=== PATIENT | female | born 1975 | race Caucasian/White ===

== ENCOUNTER → 2019-09-26 10:12 | Outpatient (CLI) | payer OTHER, SELFPAY ==
--- NOTE | 2019-09-26 | DI.RAD.S_ITS ---
PROCEDURE: XR HAND RT MIN 3V INDICATIONS: chronic wrist pain, hand pain TECHNIQUE: 3 views of the hand(s) acquired. COMPARISON: [facility], CR, XR WRIST RT MIN 3V, 09/26/2019, 10:30. FINDINGS: Bones: No acute fractures or dislocations. Old ulnar styloid fracture which appears corticated. Carpal bones are normally aligned. No suspicious bony lesions. Soft tissues: No suspicious soft tissue calcifications. IMPRESSION: 1. Old ulnar styloid fracture. Dictated by: Chastity Cervantes M.D. on 09/26/2019 at 17:34 Approved by: Chastity Cervantes M.D. on 09/26/2019 at 17:36
--- NOTE | 2019-09-26 | DI.RAD.S_ITS ---
PROCEDURE: XR HAND LT MIN 3V INDICATIONS: chronic wrist pain, hand pain TECHNIQUE: 3 views of the hand(s) acquired. COMPARISON: [facility], CR, XR WRIST LT MIN 3V, 09/26/2019, 10:34. FINDINGS: Bones: No fractures or dislocations. Carpal bones are normally aligned. No suspicious bony lesions. Soft tissues: There is soft tissue calcification in the area of triangular fibrocartilage consistent with TFCC degeneration. IMPRESSION: 1. No acute osseous medically. 2. TFCC degeneration. Dictated by: Chastity Cervantes M.D. on 09/26/2019 at 17:40 Approved by: Chastity Cervantes M.D. on 09/26/2019 at 17:42
--- NOTE | 2019-09-26 | DI.RAD.S_ITS ---
PROCEDURE: XR WRIST RT MIN 3V INDICATIONS: chronic wrist pain, hand pain TECHNIQUE: 4 views of the wrist were acquired. COMPARISON: [facility], CR, XR HAND RT MIN 3V, 09/26/2019, 10:30. FINDINGS: Bones: No acute fractures or dislocations. No suspicious bony lesions. There is an old ulnar styloid fracture. Scaphoid view: Scaphoid is intact Soft tissues: No suspicious soft tissue calcifications. IMPRESSION: Old ulnar styloid fracture. Dictated by: Chastity Cervantes M.D. on 09/26/2019 at 17:36 Approved by: Chastity Cervantes M.D. on 09/26/2019 at 17:37
--- NOTE | 2019-09-26 | DI.RAD.S_ITS ---
PROCEDURE: XR WRIST LT MIN 3V INDICATIONS: chronic wrist pain, hand pain TECHNIQUE: 4 views of the wrist were acquired. COMPARISON: [facility], CR, XR HAND LT MIN 3V, 09/26/2019, 10:34. FINDINGS: Bones: No fractures or dislocations. No suspicious bony lesions. Scaphoid view: Scaphoid is intact Soft tissues: There is soft tissue calcification in the area of the triangular fibrocartilage. 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 Dictated by: Chastity Cervantes M.D. on 09/26/2019 at 17:39 Approved by: Chastity Cervantes M.D. on 09/26/2019 at 17:40
== END ==
PROVIDERS: Visit Provider Nurse Practitioner Family
DX: M25.531 Pain in right wrist (principal); M79.641 Pain in right hand; M79.642 Pain in left hand; M25.532 Pain in left wrist; M19.032 Primary osteoarthritis, left wrist
CPT/HCPCS: 73110; 73130

== ENCOUNTER → 2020-04-17 12:02 | Outpatient (CLI) | payer OTHER, SELFPAY ==
--- NOTE | 2020-04-17 12:05 | DI.RAD.S_ITS ---
PROCEDURE: XR KNEE LT 3V INDICATIONS: RIGHT KNEE PAIN TECHNIQUE: 3 views of the knee were acquired. COMPARISON: None. FINDINGS: Bones: No fractures or dislocations. No suspicious bony lesions. Medial compartment chondrocalcinosis. Scattered degenerative subchondral sclerosis and spurring. Soft tissues: No joint effusion. No suspicious soft tissue calcifications. IMPRESSION: Chondrocalcinosis. Mild joint degeneration. Dictated by: Aaron Christianson M.D. on 04/17/2020 at 14:55 Approved by: Aaron Christianson M.D. on 04/17/2020 at 14:56
== END ==
PROVIDERS: Referring Provider Internal Medicine; Visit Provider Internal Medicine
DX: M25.561 Pain in right knee (principal); M17.11 Unilateral primary osteoarthritis, right knee; M11.261 Other chondrocalcinosis, right knee
CPT/HCPCS: 73562

== ENCOUNTER → 2024-04-01 11:16 | Outpatient (CLI) | payer OTHER, SELFPAY ==
--- NOTE | 2024-04-01 | DI.RAD.S_ITS ---
PROCEDURE: XR FINGER LT MIN 2V INDICATIONS: pain of left middle finger TECHNIQUE: AP hand, 2 views of the 3rd finger(s) acquired. COMPARISON: None. FINDINGS: Bones: Mildly displaced fracture of the 3rd distal phalanx tuft. No suspicious bony lesions. Soft tissues: No suspicious soft tissue calcifications. IMPRESSION: Mildly displaced fracture of the 3rd distal phalanx tuft. Dictated by: Jhonatan Auguste M.D. on 04/01/2024 at 12:49 Approved by: Jhonatan Auguste M.D. on 04/01/2024 at 12:51
== END ==
PROVIDERS: PCP Registered Nurse; Referring Provider Registered Nurse; Visit Provider Registered Nurse
DX: S62.633A Displaced fracture of distal phalanx of left middle finger, initial encounter for closed fracture (principal); M79.645 Pain in left finger(s); X58.XXXA Exposure to other specified factors, initial encounter
CPT/HCPCS: 73140

== ENCOUNTER → 2024-04-04 11:41 | Outpatient (CLI) | payer OTHER, SELFPAY ==
--- NOTE | 2024-04-04 11:42 | DI.MG.S_ITS ---
BILATERAL DIGITAL SCREENING MAMMOGRAM 3D/2D WITH CAD: 04/04/2024 CLINICAL: Routine screening. Comparison is made to exam dated: 12/21/2017 mammogram - outside facility. There are scattered areas of fibroglandular density in both breasts (category b / 25%-50% glandular tissue). Current study was also evaluated with a Computer Aided Detection (CAD) system. No significant masses, calcifications, or other findings are seen in either breast. There has been no significant interval change. IMPRESSION: NEGATIVE There is no mammographic evidence of malignancy. A 1 year screening mammogram is recommended. Based on the Tyrer Cuzick model (a risk assessment model) the patient's lifetime risk is 10.1% and her 10 year risk is 2.4%. According to the ACR, ACS, and NCCN guidelines, an annual breast MRI exam along with mammogram is recommended if the patient's lifetime risk is 20% or greater. This exam was interpreted at Station ID: [id number]. NOTE: For mammograms, a report in lay terms will be sent to the patient. Approximately 15% of breast malignancies will not be visualized mammographically. In the management of a palpable breast mass, a negative mammogram must not discourage biopsy of a clinically suspicious lesion. Electronically Signed By: Agusto burgess/justin:04/04/2024 15:56:21 letter sent: Normal Exam ACR BI-RADS Category 1: Negative [id number]
== END ==
PROVIDERS: PCP Registered Nurse; Referring Provider Registered Nurse; Visit Provider Registered Nurse
DX: Z12.31 Encounter for screening mammogram for malignant neoplasm of breast (principal); R92.323 Mammographic fibroglandular density, bilateral breasts
CPT/HCPCS: 77063; 77067

== ENCOUNTER → 2025-07-29 10:19 | Outpatient (CLI) | payer OTHER, SELFPAY ==
--- NOTE | 2025-07-29 | DI.RAD.S_ITS ---
PROCEDURE: XR HAND RT MIN 3V INDICATIONS: TRIGGER THUMB TECHNIQUE: 3 views of the hand(s) acquired. COMPARISON: [facility], CR, XR HAND LT MIN 3V, 09/26/2019, 10:34. FINDINGS: Bones: Old ununited fracture ulnar styloid process appreciated . Joints: Moderate degeneration STT and 1st CMC joints. There is mild degeneration all MCP and interphalangeal joints. Soft tissues: No soft tissue abnormality. IMPRESSION: Degeneration Dictated by: Niraj Nelson M.D. on 07/30/2025 at 10:07 Approved by: Niraj Nelson M.D. on 07/30/2025 at 10:08
== END ==
PROVIDERS: PCP Registered Nurse; Referring Provider Registered Nurse; Visit Provider Registered Nurse
DX: S63.8X1A Sprain of other part of right wrist and hand, initial encounter (principal); M19.041 Primary osteoarthritis, right hand; M18.11 Unilateral primary osteoarthritis of first carpometacarpal joint, right hand; M79.644 Pain in right finger(s)
CPT/HCPCS: 73130